=== PATIENT | male | born 1985 | race Caucasian/White ===

== ENCOUNTER 2023-11-08 14:10 | Outpatient (AMB) | payer OTHER, SELFPAY ==
--- NOTE | 2023-11-08 14:12 | MHC.PC.OV ---
Vital Signs 11/08/23 14:15 Height 5 ft 10 in Weight 190 lb BMI 27.3 BP 120/80 Blood Pressure Location Rt brachial Position Sitting Pulse 108 H Pulse Source Pulse Oximeter Pulse Oximetry (%) 98 Oxygen Delivery Method Room Air Intake Visit Reasons: Annual PE/ last seen 2021 Intake Note: Patient here for physical exam. Allergies Benadryl Allergy (Unknown, Unverified 11/08/23 14:15) hives From BENADRYL Allergy (Unknown, Uncoded 11/08/23 14:15) HIVES Medication List - Last Reconciled 11/08/23 by LÁZARO Kim clonazepam 0.5 mg PO BID PRN methadone 85 mg PO DAILY risperidone mg PO sertraline 100 mg PO BID trazodone 100 - 300 mg PO BEDTIME Tobacco use date assessed: 11/08/23 Dental Screening Dental Screen Date: 11/08/23 Did you have a dental visit in the last 12 months?: No Did you have a dental problem in the last 6 months where you did not have access to dental care?: No Was dental information given to patient?: Patient has dentist HPI Annual PE/ last seen 2021 HPI Details Pt is here for a PE. Will order labs. Pt sees a psychiatrist and a therapist. He also goes to the methadone clinic. [facility], LAT[facility] Medical History (Updated 11/08/23 @ 14:32 by LÁZARO Kim) Lactose intolerance Family History Father Substance use disorder Paternal Grandfather Mental health disorder Social History Housing: House Patient Tobacco Use Status: Current everyday Tobacco user Cigarettes Per Day: 13 e-Cigarette/Vaping Use: Never Used Second Hand Smoke Exposure: No service: No Current occupational status: disabled Cognitive needs: No Hearing needs: No Vision needs: No Questionnaire PHQ-9 Over the last 2 weeks, how often have you been bothered by any of the following problems? 1. Little interest or pleasure in doing things: not at all 2. Feeling down, depressed, or hopeless: several days 3. Trouble falling or staying asleep, or sleeping too much: more than half the days 4. Feeling tired or having little energy: several days 5. Poor appetite or overeating: not at all 6. Feeling bad about yourself - or that you are a failure or have let yourself or your family down: not at all 7. Trouble concentrating on things, such as reading the newspaper or watching television: not at all 8. Moving or speaking so slowly that other people could have noticed. Or the opposite - being so fidgety or restless that you have been moving around a lot more than usual: not at all 9. Thoughts that you would be better off or of hurting yourself in some way: not at all Total score: 4 Depression Screening Interpretation: Negative (has a therapist and psychiatrist) Depression Screening Done: Yes 88622 - PHQ-9 Billing: Yes Source: Developed by Drs. Charles Sanchez, Sarah Mondragon, Edi Parks and colleagues, with an educational ashley from [email or web address]. Thrive Questionnaire Date Thrive assessed: 11/08/23 I am a: Patient What is your living situation today?: I have a steady place to live Within the past 12 months, did the food you bought not last and you didn't have the money to get more?: Sometimes True Within the past 12 months, did you worry whether your food would run out before you got money to buy more?: Never true Do you have trouble paying for medicines?: No Do you have trouble getting transportation to medical appointments?: No Do you have trouble paying your heating and electricity bill?: No Do you have trouble taking care of your child, family member or friend?: No Do you have trouble with day-to-day activities such as bathing, preparing meals, shopping, managing finances, etc.?: No Are you currently unemployed and looking for a job?: Yes Are you interested in more education?: No Currently or been in a relationship where the following occur: I choose not to answer this question THRIVE Score: 1 AUDIT C Alcohol Use Questionnaire (AUDIT-C) 1. How often do you have a drink containing alcohol?: 2-3 times a week 2. How many drinks containing alcohol do you have on a typical day when you are drinking?: 3 or 4 3. How often do you have six or more drinks on one occasion?: Never Total Score: 4 Score Reviewed/Action Taken: No MIRYAM-7 AMB Questionnaire MIRYAM-7 Date MIRYAM - 7 assessed: 11/08/23 Feeling nervous, anxious, or on edge: 1 = Several days Not being able to stop or control worryin = Several days Worrying too much about different things: 1 = Several days Trouble relaxin = Several days Being so restless that it is hard to sit still: 0 = Not at all Becoming easily annoyed or irritable: 0 = Not at all Feeling afraid as if something awful might happen: 0 = Not at all Total MIRYAM-7 score (0-4 normal; 5-9 mild; 10-14 moderate; 15-21 severe): 4 Source: Developed by Drs. Charles Sanchez, Sarah Mondragon, Edi Parks and colleagues, with an educational ashley from [email or web address]. MIRYAM-7 Assessment Billing MIRYAM-7 Assessment Tool: MIRYAM-7 Assessment 65450 Review of Systems Const Denies chills and Denies fever(s) Eyes Denies blurry vision ENT Denies vertigo, Denies dizziness and Denies sore throat Card Denies chest pain at rest, Denies chest pain with activity, Denies diaphoresis, Denies dyspnea and Denies dyspnea on exertion Resp Denies cough, Denies dyspnea, Denies dyspnea on exertion and Denies wheezing GI Denies abdominal pain, Denies melena, Denies hematochezia, Denies constipation, Denies diarrhea and Denies loose stools Denies hematuria Musc Denies numbness and Denies tingling Skin/Breast Denies lesions Neuro Denies vertigo, Denies dizziness, Denies numbness and Denies tingling Psych Denies anxiety, Denies depression, Denies homicidal ideation, Denies suicidal ideation and Denies other (substance abuse) Aller/Immun Denies wheezing Physical exam (Primary Care) Vital Signs: Last Vital Signs Pulse 108 H 11/08/23 14:15 BP 120/80 11/08/23 14:15 Pulse Ox 98 11/08/23 14:15 Oxygen Delivery Method Room Air 11/08/23 14:15 BMI result Body Mass Index 27.3 Tobacco/Smoking Status: Tobacco use Status Tobacco use date assessed 11/08/23 11/08/23 14:18 Patient Tobacco Use Status Current everyday Tobacco 11/08/23 14:14 e-Cigarette/Vaping Use Never Used 11/08/23 14:14 PHQ-9: PHQ-9 Score PHQ-9: Total score 4 11/08/23 14:47 Depression Screening Interpretation: Negative (has a therapist and psychiatrist) Thrive Assessment: Date of Thrive Assessment Date Thrive assessed 11/08/23 11/08/23 14:47 Currently or been in a relationship where the following occur: I choose not to answer this question Const General: cooperative Nutritional Appearance: well nourished Orientation/consciousness: patient oriented x3 HENMT Other: extensive cerumen noted to left ear, after ear lavage TM easily seen Head: Yes normal to inspection, Yes normocephalic and Yes atraumatic Ears: TM normal on the right Eyes General: appearance normal, both eyes and all related structures Alignment and Position: alignment normal and position normal Neck Neck: Yes normal visual inspection and Yes no lymphadenopathy Thyroid: Thyroid normal Resp Effort & Inspection: normal respiratory effort Auscultation: clear to auscultation bilaterally Cardio Rate: tachycardic Rhythm: regular rhythm Heart sounds: S1 normal heart sound present, S2 normal heart sound present and no murmurs GI Inspection: Yes distended Palpation (GI): Soft to palpation and nontender Auscultation: normal bowel sounds Male General Exam: Yes normal external exam Penis: normal penis Scrotum: scrotum normal, testes descended bilaterally and no inguinal hernias Testes: no testicular mass Skin Rashes: no rashes Neuro General: patient oriented x3, moves all extremities, no focal motor deficits and deep tendon reflexes 2+ bilaterally Romberg Test: Negative Psych Appearance: grossly normal Mental Status: mental status grossly normal Speech and movement: Normal speech and movement present Affect: normal affect Attitude: cooperative Thought process: Normal thought process present Thought content: Normal thought content present Insight: Good insight present (Psych) Judgement: Good judgement present (Psych) Office Procedures Cerumen Removal From which ear canal was the cerumen removed: left Removal: irrigation Notes: patient tolerated procedure well, no complications and ear canal clear [id number] Irrigation/Lavage Assessment and Plan Assessment & Plan (1) Physical exam: Code(s): Z00.00 - Encounter for general adult medical examination without abnormal findings Plan: Labs ordered (2) Tachycardia: Code(s): R00.0 - Tachycardia, unspecified Plan: EKG done in office (3) Cerumen impaction: Code(s): H61.20 - Impacted cerumen, unspecified ear Plan: Ear flushed in office, pt tolerated well Plan The patient agreed to the use of a medical scientific officer for this encounter. Scribed for LÁZARO Regalado by Ruth Fontaine medical scientific officer, on 11/08/2023 at 14:20 EST. Orders: Orders Complete Blood Count Auto Diff Today Z00.00 - Encounter for general adult medical examination without abnormal findings TSH reflex Free T4 Today Z00.00 - Encounter for general adult medical examination without abnormal findings Comprehensive [place]. Panel Fast Today Z00.00 - Encounter for general adult medical examination without abnormal findings UA CC w/rflx Micro + Cult Today Z00.00 - Encounter for general adult medical examination without abnormal findings Lipid Panel Today Z00.00 - Encounter for general adult medical examination without abnormal findings AMB EKG-In Office Today R00.0 - Tachycardia, unspecified Coding Level of Care Code Est Pt Prev Care [id number]([id number]) Diagnoses Physical exam Z00.00 Tachycardia R00.0 Cerumen impaction H61.20 CPT Codes Office Procedure - CPT: 17837-Shj Irrigation/Lavage ([id number]) Additional Codes MIRYAM-7 Assessment Billing - MIRYAM-7 Assessment Tool: MIRYAM-7 Assessment 12230 ([id number])
[2023-11-08 14:15] VITALS: BP 120/80; PULSE 108; O2SAT 98; BMI 27.3
== END 2023-11-08 15:03 | disposition home or self-care (01) ==
PROVIDERS: PCP Nurse Practitioner Family; Visit Provider Nurse Practitioner Family
DX: Z00.00 Encounter for general adult medical examination without abnormal findings (principal); R00.0 Tachycardia, unspecified; H61.22 Impacted cerumen, left ear
CPT/HCPCS: 69209; 93000; 99395